=== PATIENT | female | born 1990 | race Caucasian/White ===

== ENCOUNTER 2017-10-14 13:51 | Emergency (ER) | payer MEDICAID ==
--- NOTE | 2017-10-14 14:43 | EDM.PDOC ---
ED HPI GENERAL MEDICAL PROBLEM - General Chief Complaint: Behavioral/Psych Stated Complaint: DEPRESSION Time Seen by Provider: 10/14/17 14:12 - History of Present Illness INITIAL COMMENTS - FREE TEXT/NARRATIVE: HISTORY AND PHYSICAL: History of present illness: The patient is a 27-year-old female who is feeling incredibly sad and depressed over the last one month due to several family members illnesses and deaths and has seen her provider Dr. Heredia at [facility] for same. She was given lorazepam and says that she does not feel like that is helping and she has been trying to connect to get a follow-up appointment and to get plugged in with counseling. She says that every time she makes an appointment is canceled and she feeling frustrated. She is not suicidal or homicidal but feels that she can' t function in her daily life and her employer sent her here due to the same feelings today. She is not having any specific abdominal pain vomiting fevers or chills but says she has had intermittent diarrhea. All of these symptoms have been progressive over the last one month due to the events in her family life. Patient says she called and has a scheduled follow-up appointment at [facility] on Saturday but when she called to see if someone could see her sooner they referred her here on my evaluation she is somewhat vague about her feelings but is specific about feeling like she cannot do her daily activities without feeling like she has absolutely no energy or desire to do these activities. She denies any history of psychiatric problems and is not seen counseling in the past. Review of systems: As per history of present illness and below otherwise all systems reviewed and negative. Past medical history: As per history of present illness and as reviewed below otherwise noncontributory. Surgical history: As per history of present illness and as reviewed below otherwise noncontributory. Social history: No reported history of drug or alcohol abuse. Family history: As per history of present illness and as reviewed below otherwise noncontributory. Physical exam: General: Well-developed well-nourished female who is nontoxic and tearful in my evaluation. Vital signs are reviewed by me HEENT: Atraumatic, normocephalic, pupils reactive, negative for conjunctival pallor or scleral icterus, mucous membranes moist, throat clear, neck supple, nontender, trachea midline. Lungs: Clear to auscultation, breath sounds equal bilaterally, chest nontender. Heart: S1S2, regular rate and rhythm no overt murmur Abdomen: Soft, nondistended, nontender. NABS Pelvis: Deferred Genitourinary: Deferred. Rectal: Deferred. Extremities: Atraumatic, negative for cords or calf pain. Neurovascular unremarkable. Neuro: Awake, alert, oriented. Cranial nerves II through XII unremarkable. Cerebellum unremarkable. Motor and sensory unremarkable throughout. Exam nonfocal. Diagnostics: [] Therapeutics: [] Impression: Depression due to recent family events and external stressors Definitive disposition and diagnosis as appropriate pending reevaluation and review of above. - Related Data Allergies Allergy/AdvReac Type Severity Reaction Status Date / Time seasonal allergies Allergy Sneezing Uncoded 11/19/15 16:21 Home Meds: Home Meds Ibuprofen [Motrin] 1,000 mg PO Q8H PRN 11/19/15 [History] LORazepam 0.5 mg PO TID PRN 10/14/17 [History] Past Medical History - Past Health History Medical/Surgical History: Denies Medical/Surgical History - Infectious Disease History Infectious Disease History: Reports: Chicken Pox - Past Surgical History HEENT Surgical History: Reports: Oral Surgery, Tonsillectomy Female Surgical History: Reports: Cystectomy Social & Family History - Family History Cardiac: Reports: Heart Failure Other Cardiac Family History: paternal grandfather of heart attack Respiratory: Reports: Asthma Psychiatric: Reports: None Oncologic: Reports: Other (See Below) Other Oncologic Family History: maternal grandmother has kidney cancer - Tobacco Use Smoking Status *Q: Current Every Day Smoker Years of Tobacco use: 15 Packs/Tins Daily: 0 - Caffeine Use Caffeine Use: Reports: Coffee, Soda - Recreational Drug Use Recreational Drug Use: Yes Drug Use in Last 12 Months: Yes Recreational Drug Type: Reports: Marijuana/Hashish Recreational Drug Use Frequency: Rarely ED ROS GENERAL - Review of Systems Review Of Systems: ROS reveals no pertinent complaints other than HPI. ED EXAM, GENERAL - Physical Exam Exam: See Below (See dictation) Course - Vital Signs Last Recorded V/S: Last Vital Signs Temp 36.2 C 10/14/17 14:08 Pulse 73 10/14/17 14:08 Resp 16 10/14/17 14:08 BP 113/65 10/14/17 14:08 Pulse Ox 100 10/14/17 14:08 Departure - Departure Time of Disposition: 14:43 Disposition: Home, Self-Care 01 Condition: Good Clinical Impression: Reaction, situational Qualifiers: Adjustment disorder type: with depressed mood Qualified Code(s): F43.21 - Adjustment disorder with depressed mood Depression Qualifiers: Depression Type: unspecified Qualified Code(s): F32.9 - Major depressive disorder, single episode, unspecified - Discharge Information Referrals: PCP,None [Primary Care Provider] - Additional Instructions: The following information is given to patients seen in the emergency department who are being discharged to home. This information is to outline your options for follow-up care. We provide all patients seen in our emergency department with a follow-up referral. The need for follow-up, as well as the timing and circumstances, are variable depending upon the specifics of your emergency department visit. If you don't have a primary care physician on staff, we will provide you with a referral. We always advise you to contact your personal physician following an emergency department visit to inform them of the circumstance of the visit and for follow-up with them and/or the need for any referrals to a consulting specialist. The emergency department will also refer you to a specialist when appropriate. This referral assures that you have the opportunity for followup care with a specialist. All of these measure are taken in an effort to provide you with optimal care, which includes your followup. Under all circumstances we always encourage you to contact your private physician who remains a resource for coordinating your care. When calling for followup care, please make the office aware that this follow-up is from your recent emergency room visit. If for any reason you are refused follow-up, please contact the [facility] emergency department at and ask to speak to the emergency department charge nurse. [address] [place] [address] Please use resources given to today to try to connect for outpatient follow-up to help provide you with some guidance and tools for the feelings that you're having so that you can attempt to improve them. Your appointment has been moved up until tomorrow at 1:15 PM with Nissa Valdes at [facility]. Return to ER as needed, push hydration and try to rest
[2017-10-14 16:10] VITALS: BP 101/60
== END 2017-10-14 14:55 | disposition home or self-care (01) ==
LOC: MW.ED 13:51
DX: F32.9 Major depressive disorder, single episode, unspecified (principal); F43.21 Adjustment disorder with depressed mood; F17.210 Nicotine dependence, cigarettes, uncomplicated
CPT/HCPCS: 99283

== ENCOUNTER 2018-10-02 10:59 | Emergency (ER) | payer OTHER ==
--- NOTE | 2018-10-02 11:03 | EDM.PDOC ---
ED HPI GENERAL MEDICAL PROBLEM - General Stated Complaint: STOMACH PAINS Time Seen by Provider: 10/02/18 11:01 Source of Information: Reports: Patient History Limitations: Reports: No Limitations - History of Present Illness INITIAL COMMENTS - FREE TEXT/NARRATIVE: History of present illness: []Patient is 5 weeks and has developed flu symptoms with fevers, vomiting and abdominal pain. She was talking with [facility] on the phone who suggested she come to the ED to be evaluated. He has Miscarried once in the past at 7 weeks and is concerned she may miscarry again. Patient has not had any vaginal bleeding or leakage. Review of systems: As per history of present illness and below otherwise all systems reviewed and negative. Past medical history: As per history of present illness and as reviewed below otherwise noncontributory. Surgical history: As per history of present illness and as reviewed below otherwise noncontributory. Social history: No reported history of drug or alcohol abuse. Family history: As per history of present illness and as reviewed below otherwise noncontributory. Physical exam: General: Well developed, well nourished in NAD HEENT: Atraumatic, normocephalic, pupils reactive, negative for conjunctival pallor or scleral icterus, mucous membranes moist, throat clear, neck supple, nontender, trachea midline. Lungs: Clear to auscultation, breath sounds equal bilaterally, chest nontender. Heart: S1S2, regular, negative for clicks, rubs, or JVD. Abdomen: NABS, Soft, nondistended, mild tenderness no rebound or guarding. Negative for masses or hepatosplenomegaly. Negative for costovertebral tenderness. Pelvis: Stable nontender. Genitourinary: Deferred. Rectal: Deferred. Extremities: Atraumatic, negative for cords or calf pain. Neurovascular unremarkable. Neuro: Awake, alert, oriented. Cranial nerves II through XII unremarkable. Cerebellum unremarkable. Motor and sensory unremarkable throughout. Exam nonfocal. Skin:warm and dry Diagnostics: CBC, hCG Quant, UA, limited OB ultrasound-5 wk IUP Therapeutics: IV hydration ED Course: Stable Impression: Threatened Prescriptions: None Plan: Take meds as directed, follow up with your primary care physician, return to ER if symptoms worsen or change. Definitive disposition and diagnosis as appropriate pending reevaluation and review of above. Right Upper Abdomen Pain Score (Numeric/FACES): 4 - Related Data Allergies Allergy/AdvReac Type Severity Reaction Status Date / Time seasonal allergies Allergy Sneezing Uncoded 10/02/18 11:20 Home Meds: Home Meds Ibuprofen [Motrin] 1,000 mg PO Q8H PRN 11/19/15 [History] LORazepam 0.5 mg PO TID PRN 10/14/17 [History] Past Medical History - Past Health History Medical/Surgical History: Denies Medical/Surgical History - Infectious Disease History Infectious Disease History: Reports: Chicken Pox - Past Surgical History HEENT Surgical History: Reports: Oral Surgery, Tonsillectomy Female Surgical History: Reports: Cystectomy Social & Family History - Family History Cardiac: Reports: Heart Failure Other Cardiac Family History: paternal grandfather of heart attack Respiratory: Reports: Asthma Psychiatric: Reports: None Oncologic: Reports: Other (See Below) Other Oncologic Family History: maternal grandmother has kidney cancer - Caffeine Use Caffeine Use: Reports: Coffee, Soda ED ROS GENERAL - Review of Systems Review Of Systems: See Below ED EXAM, GI/ABD - Physical Exam Exam: See Below Course - Vital Signs Last Recorded V/S: Last Vital Signs Temp 96.8 F 10/02/18 11:21 Pulse 94 10/02/18 11:21 Resp 18 10/02/18 11:21 BP 116/66 10/02/18 11:21 Pulse Ox 96 10/02/18 11:21 - Orders/Labs/Meds Orders: Active Orders 24 hr Category Date Time Status COMPREHENSIVE METABOLIC PN,CMP [CHEM] Stat Lab 10/02/18 12:00 Received HCG QUANTITATIVE [CHEM] Stat Lab 10/02/18 12:00 Received Sodium Chloride 0.9% [Saline Flush] Med 10/02/18 11:16 Active 10 ml FLUSH ASDIRECTED PRN Sodium Chloride 0.9% [Saline Flush] Med 10/02/18 11:16 Active 2.5 ml FLUSH ASDIRECTED PRN Saline Lock Insert [OM.PC] Stat Oth 10/02/18 11:16 Ordered Medication Orders Sodium Chloride (Saline Flush) 10 ml FLUSH ASDIRECTED PRN PRN Reason: Keep Vein Open Last Admin: 10/02/18 12:07 Dose: 10 ml Sodium Chloride (Saline Flush) 2.5 ml FLUSH ASDIRECTED PRN PRN Reason: Keep Vein Open Last Admin: 10/02/18 12:07 Dose: 2.5 ml Labs: Laboratory Tests 10/02/18 10/02/18 Range/Units 12:00 12:00 WBC 7.24 (4.0-11.0) K/uL RBC 4.75 (4.30-5.90) M/uL Hgb 14.2 (12.0-16.0) g/dL Hct 40.4 (36.0-46.0) % MCV 85.1 (80.0-98.0) fL MCH 29.9 (27.0-32.0) pg MCHC 35.1 (31.0-37.0) g/dL RDW Std Deviation 38.5 (28.0-62.0) fl RDW Coeff of Carol 13 (11.0-15.0) % Plt Count 176 (150-400) K/uL MPV 9.20 (7.40-12.00) fL Neut % (Auto) 81.9 H (48.0-80.0) % Lymph % (Auto) 12.7 L (16.0-40.0) % [place] % (Auto) 4.6 (0.0-15.0) % Eos % (Auto) 0.7 (0.0-7.0) % Baso % (Auto) 0.1 (0.0-1.5) % Neut # (Auto) 5.9 H (1.4-5.7) K/uL Lymph # (Auto) 0.9 (0.6-2.4) K/uL [place] # (Auto) 0.3 (0.0-0.8) K/uL Eos # (Auto) 0.1 (0.0-0.7) K/uL Baso # (Auto) 0.0 (0.0-0.1) K/uL Nucleated RBC % 0.0 /100WBC Nucleated RBCs # 0 K/uL Urine Color YELLOW Urine Appearance SLT CLOUDY Urine pH 5.5 (5.0-8.0) Ur Specific [place] >= 1.030 (1.001-1.035) Urine Protein NEGATIVE (NEGATIVE) mg/dL Urine Glucose (UA) NEGATIVE (NEGATIVE) mg/dL Urine Ketones 15 H (NEGATIVE) mg/dL Urine Occult Blood NEGATIVE (NEGATIVE) Urine Nitrite NEGATIVE (NEGATIVE) Urine Bilirubin SMALL H (NEGATIVE) Urine Ictotest NEGATIVE Urine Urobilinogen 0.2 (<2.0) EU/dL Ur Leukocyte Esterase NEGATIVE (NEGATIVE) Urine RBC 0-1 (0-2/HPF) Urine WBC 0-1 (0-5/HPF) Ur Epithelial Cells RARE (NONE-FEW) Urine Bacteria RARE (NEGATIVE) Meds: Medications Generic Name Dose Route Start Last Admin Trade Name Freq PRN Reason Stop Dose Admin Sodium Chloride 10 ml 10/02/18 11:16 10/02/18 12:07 Saline Flush FLUSH 10 ml ASDIRECTED PRN Administration Keep Vein Open Sodium Chloride 2.5 ml 10/02/18 11:16 10/02/18 12:07 Saline Flush FLUSH 2.5 ml ASDIRECTED PRN Administration Keep Vein Open Discontinued Medications Generic Name Dose Route Start Last Admin Trade Name Freq PRN Reason Stop Dose Admin Sodium Chloride 1,000 mls @ 999 mls/hr 10/02/18 11:18 10/02/18 12:06 Normal Saline IV 10/02/18 12:18 999 mls/hr .Bolus ONE Administration Ondansetron HCl 4 mg 10/02/18 11:16 10/02/18 12:06 Zofran IVPUSH 10/02/18 11:17 4 mg ONETIME ONE Administration Departure - Departure Time of Disposition: 12:48 Disposition: Home, Self-Care 01 Condition: Good Clinical Impression: Threatened - Discharge Information *PRESCRIPTION DRUG MONITORING PROGRAM REVIEWED*: No *COPY OF PRESCRIPTION DRUG MONITORING REPORT IN PATIENT HAJA: No Referrals: PCP,None [Primary Care Provider] - Additional Instructions: The following information is given to patients seen in the emergency department who are being discharged to home. This information is to outline your options for follow-up care. We provide all patients seen in our emergency department with a follow-up referral. The need for follow-up, as well as the timing and circumstances, are variable depending upon the specifics of your emergency department visit. If you don't have a primary care physician on staff, we will provide you with a referral. We always advise you to contact your personal physician following an emergency department visit to inform them of the circumstance of the visit and for follow-up with them and/or the need for any referrals to a consulting specialist. The emergency department will also refer you to a specialist when appropriate. This referral assures that you have the opportunity for follow-up care with a specialist. All of these measure are taken in an effort to provide you with optimal care, which includes your follow-up. Under all circumstances we always encourage you to contact your private physician who remains a resource for coordinating your care. When calling for follow-up care, please make the office aware that this follow-up is from your recent emergency room visit. If for any reason you are refused follow-up, please contact the [facility] Emergency Department at and asked to speak to the emergency department charge nurse. [facility] [address] [place] [address] - My Orders Last 24 Hours: My Active Orders 10/02/18 11:16 Sodium Chloride 0.9% [Saline Flush] 10 ml FLUSH ASDIRECTED PRN Sodium Chloride 0.9% [Saline Flush] 2.5 ml FLUSH ASDIRECTED PRN Saline Lock Insert [OM.PC] Stat 10/02/18 12:00 COMPREHENSIVE METABOLIC PN,CMP [CHEM] Stat HCG QUANTITATIVE [CHEM] Stat - Assessment/Plan Last 24 Hours: My Active Orders 10/02/18 11:16 Sodium Chloride 0.9% [Saline Flush] 10 ml FLUSH ASDIRECTED PRN Sodium Chloride 0.9% [Saline Flush] 2.5 ml FLUSH ASDIRECTED PRN Saline Lock Insert [OM.PC] Stat 10/02/18 12:00 COMPREHENSIVE METABOLIC PN,CMP [CHEM] Stat HCG QUANTITATIVE [CHEM] Stat
[2018-10-02] MEDS ORDERED: Sodium Chloride 0.9% 10 ML Syringe FLUSH PRN (11:16)
[2018-10-02] MEDS ORDERED: Ondansetron 4 MG/2 ML SDV IVPUSH ONE (11:16)
[2018-10-02] MEDS ORDERED: Sodium Chloride 0.9% 2.5 ML Syringe FLUSH PRN (11:16)
[2018-10-02] MEDS ORDERED: Sodium Chloride 0.9% 1,000 ML IV ONE (11:18)
--- NOTE | 2018-10-02 12:31 | US ---
HISTORY: Pelvic pain. Five weeks . COMPARISON: None available of this gestation. TECHNIQUE: Transvaginal ultrasound examination of the early was performed. FINDINGS: A single intrauterine gestational sac is seen without a pole, but with a good double decidual sac sign. The mean sac diameter measurement of 0.4 cm gives an estimated gestational age of 5 weeks 1 day with an estimated date of delivery of 06/03/2019. This correlates well with the LMP of 08/27/2018 which gives a clinical age of 5 weeks 1 day. Regular cardiac activity cannot yet be identified since a pole is not seen. There is a mild amount of free fluid located in the cul-de-sac, nonspecific. Nabothian cysts are seen at the cervix. The right ovary contains a corpus luteum cyst measuring 2.2 x 1.3 x 1.9 centimeters. The left ovary is normal in appearance. IMPRESSION: Single intrauterine gestational sac with estimated age of 5 weeks 1 day, correlating well with the clinical dates. Cardiac activity cannot yet be identified. Mild amount of free fluid in the cul-de-sac, nonspecific. Right ovarian corpus luteum cyst. Dictated by Luis Lovelace MD @ Oct 02 2018 12:26PM Signed by Dr. Luis Lovelace @ Oct 02 2018 12:29PM
[2018-10-02 12:58] LABS: BLOOD UREA NITROGEN,BUN 15 mg/dL (7.0-18.0); CARBON DIOXIDE,CO2 23.9 mmol/L (21.0-32.0); CHLORIDE,CL 104 mmol/L (98-107); GLUCOSE RANDOM 90 mg/dL (74-106); POTASSIUM,K 3.5 mmol/L (3.5-5.1); SODIUM,NA 137 mmol/L (136-145)
[2018-10-02 12:59] VITALS: BP 103/65; PULSE 70
== END 2018-10-02 12:59 | disposition home or self-care (01) ==
LOC: MW.ED 10:59
DX: O20.0 Threatened abortion (principal); Z3A.01 Less than 8 weeks gestation of pregnancy
CPT/HCPCS: 36415; 76817; 80053; 81001; 84702; 85025; 96361; 96374; 99284; J2405; J7040; 99283

== ENCOUNTER 2019-05-30 15:08 | Inpatient (IN) | payer MEDICAID ==
[2019-05-30] MEDS ORDERED: Sodium Chloride 0.9% 2.5 ML Syringe FLUSH PRN (16:08)
[2019-05-30] MEDS ORDERED: Nalbuphine 10 MG/1 ML Vial IVPUSH PRN (16:08)
[2019-05-30] MEDS ORDERED: Tranexamic Acid 1,000 MG in Sodium Chloride 0.9% 100 ML IV PRN (16:08)
[2019-05-30] MEDS ORDERED: Water For Irrigation,Sterile 1,000 ML Container IRR PRN (16:08)
[2019-05-30] MEDS ORDERED: Misoprostol 25 MCG (1/4 of 100 MCG) Tab VAG PRN ×2 (16:08)
[2019-05-30] MEDS ORDERED: Sodium Chloride 0.9% 10 ML SDV IV PRN (16:08)
[2019-05-30] MEDS ORDERED: Ampicillin 2 GM in Sodium Chloride 0.9% 100 ML IV ONE (16:08)
[2019-05-30] MEDS ORDERED: Methylergonovine 0.2 MG/1 ML Amp IM PRN (16:08)
[2019-05-30] MEDS ORDERED: Terbutaline 1 MG/ML SDV SUBCUT PRN (16:08)
[2019-05-30] MEDS ORDERED: Sodium Chloride 0.9% 10 ML Syringe FLUSH PRN (16:08)
[2019-05-30] MEDS ORDERED: Misoprostol 25 MCG (1/4 of 100 MCG) Tab PO PRN (16:08)
[2019-05-30] MEDS ORDERED: Carboprost Tromethamine 250 MCG/1 ML Amp IM PRN (16:08)
[2019-05-30] MEDS ORDERED: Lidocaine 1% 50 ML MDV INJECT PRN (16:08)
[2019-05-30] MEDS ORDERED: Misoprostol 200 MCG Tab PO PRN (16:08)
[2019-05-30] MEDS ORDERED: Butorphanol 1 MG/ML SDV IVPUSH PRN (16:08)
[2019-05-30] MEDS ORDERED: Oxytocin/0.9 % Sodium Chloride 30 UNIT/500 ML BAG IV SCH ×2 (16:15)
[2019-05-30] MEDS: Lactated Ringers 1,000 ML IV SCH ×3 (18:26→21:03)
--- NOTE | 2019-05-30 19:33 | PCM.LDHP ---
L&D History of Present Illness - General Date of Service: 05/30/19 Admit Problem/Dx: Patient Status Order with Admit Dx/Problem 05/30/19 16:08 Patient Status [ADT] Routine Admission Diagnosis/Problem Admission Diagnosis/Problem 05/30/19 19:37 Ivette is a 29 yo that presents today for social IOL at 39.3 wks (TIFFANIE 06/03/2019). AB pos, RI, GBS pos. Source of Information: Patient History Limitations: Reports: No Limitations - History of Present Illness Introduction:: Ivette is a 29 yo that presents today for social IOL at 39.3 wks (TIFFANIE 06/03/2019). AB pos, RI, GBS pos. Prophylactic ampicillin 2 g once then ampicillin 1 g every 4 hours thereafter. No pertinent medical history. Cytotec to pitocin IOL per orders. SVE 1/50/-2, cytotec dose #1 given at 1645, membranes intact. Contractions every 1-4 min, 60-90 sec duration, moderate to palpation, breathing through contractions. FHR 135, moderate variability, positive accels, variable and late decels. RN to continue position changes, 1, 000 ml LR bolus, O2 as needed for intrauterine resuscitation. To notify provider if tracing does not improve. Continue with IOL as per orders. Improves with: Reports: None Worsens with: Reports: None Associated Symptoms: Reports: N - Related Data Allergies/Adverse Reactions: Allergies Allergy/AdvReac Type Severity Reaction Status Date / Time seasonal allergies Allergy Mild Sneezing Uncoded 05/08/19 15:34 Home Medications: Home Meds Ibuprofen [Motrin] 1,000 mg PO Q8H PRN 11/19/15 [History] LORazepam 0.5 mg PO TID PRN 10/14/17 [History] Pnv No.95/Ferrous Fum/Folic AC [ Vitamins Tablet] 1 tab PO DAILY [History] Past Medical History - Past Health History Medical/Surgical History: Denies Medical/Surgical History HEENT History: Reports: None Cardiovascular History: Reports: None Respiratory History: Reports: None Gastrointestinal History: Reports: None Genitourinary History: Reports: None WRAPPER DIPPER History: Reports: None, : 5 Para: 3 (IOL with x3, SAB x1) Musculoskeletal History: Reports: None Neurological History: Reports: None Psychiatric History: Reports: None Endocrine/Metabolic History: Reports: None Hematologic History: Reports: None Immunologic History: Reports: None Dermatologic History: Reports: None - Infectious Disease History Infectious Disease History: Reports: Chicken Pox - Past Surgical History HEENT Surgical History: Reports: Oral Surgery, Tonsillectomy Female Surgical History: Reports: Cystectomy Social & Family History - Family History Family Medical History: Noncontributory Cardiac: Reports: Heart Failure Other Cardiac Family History: paternal grandfather of heart attack Respiratory: Reports: Asthma Psychiatric: Reports: None Oncologic: Reports: Other (See Below) Other Oncologic Family History: maternal grandmother has kidney cancer - Tobacco Use Smoking Status *Q: Former Smoker Used Tobacco, but Quit: Yes Month/Year Tobacco Last Used: 9 months ago Second Hand Smoke Exposure: No - Caffeine Use Caffeine Use: Reports: Coffee, Soda - Alcohol Use Alcohol Use History: No - Recreational Drug Use Recreational Drug Use: No - Sexual History Sexual History: Reports: Single Partner, Vaginal [place] - Living Situation & Occupation Living situation: Reports: H&P Review of Systems - Review of Systems: Review Of Systems: Comprehensive ROS is negative, except as noted in HPI. General: Reports: No Symptoms HEENT: Reports: No Symptoms Pulmonary: Reports: No Symptoms Cardiovascular: Reports: No Symptoms Gastrointestinal: Reports: No Symptoms Genitourinary: Reports: No Symptoms Musculoskeletal: Reports: No Symptoms Skin: Reports: No Symptoms Psychiatric: Reports: No Symptoms Neurological: Reports: No Symptoms Hematologic/Lymphatic: Reports: No Symptoms Immunologic: Reports: No Symptoms L&D Exam - Exam Exam: See Below - Vital Signs Weight: 170 lb - OB Specific Fundal Height In cm: 39 Contraction Duration (sec): 60-90 Contraction Frequency (min): 1-4 Contraction Intensity: Moderate Movement: Active Heart Tones: Present Heart Tones per Min: 135 (Accels present; variable and late decels present ) Heart Rate (FHR) Variability: Moderate (6-25 bmp) Presentation: Vertex - Ferrera Score Ferrera Score Cervix Position: Midposition Ferrera Score Consistency: Soft Ferrera Score Effacement: 31-50% Ferrera Score Dilation: 1-2 cm Ferrera Score 's Station: -2 Ferrear Score Total: 6 - Exam General: Alert, Oriented HEENT: Conjunctiva Clear, Hearing Intact, Mucosa Moist & [place], PERRLA Neck: Supple, Trachea Midline Lungs: Clear to Auscultation, Normal Respiratory Effort Cardiovascular: Regular Rate, Regular Rhythm GI/Abdominal Exam: Normal Bowel Sounds, Soft, Non-Tender, No Organomegaly, No Distention, Other (Gravid uterus) Rectal Exam: Deferred Genitourinary: Normal external exam, Normal bimanual exam Back Exam: Normal Inspection, Full Range of Motion Extremities: Normal Inspection, Normal Range of Motion, Non-Tender, No Pedal Edema, Normal Capillary Refill Skin: Warm, Dry, Intact Neurological: Cranial Nerves Intact, Reflexes Equal Bilateral Psychiatric: Alert, Normal Affect, Normal Mood - Patient Data Lab Results Last 24 hrs: Laboratory Results - last 24 hr 05/30/19 05/30/19 Range/Units 15:50 15:50 WBC 9.85 (4.0-11.0) K/uL RBC 4.11 L (4.30-5.90) M/uL Hgb 11.6 L (12.0-16.0) g/dL Hct 35.4 L (36.0-46.0) % MCV 86.1 (80.0-98.0) fL MCH 28.2 (27.0-32.0) pg MCHC 32.8 (31.0-37.0) g/dL RDW Std Deviation 41.8 (28.0-62.0) fl RDW Coeff of Carol 13 (11.0-15.0) % Plt Count 190 (150-400) K/uL MPV 10.20 (7.40-12.00) fL Nucleated RBC % 0.0 /100WBC Nucleated RBCs # 0 K/uL Blood Type AB POSITIVE Antibody Screen NEGATIVE Result Diagrams: 05/30/19 15:50 - Problem List (1) Elective induction of labor planned SNOMED Code(s): 220516684 ICD Code: [id number] - Status: Acute Priority: High Current Visit: Yes (2) Third trimester SNOMED Code(s): 95533515 ICD Code: Z34.93 - ENCNTR FOR SUPRVSN OF NORMAL PREG, UNSP, THIRD TRIMESTER Status: Acute Priority: High Current Visit: Yes (3) 39 weeks gestation of SNOMED Code(s): 16816195 ICD Code: Z3A.39 - 39 WEEKS GESTATION OF Status: Acute Priority : High Current Visit: Yes Problem List Initiated/Reviewed/Updated: Yes Orders Last 24hrs: Active Orders 24 hr Category Date Time Status Patient Status [ADT] Routine ADT 05/30/19 16:08 Active Bedrest Bathroom Privileges [RC] ASDIRECTED Care 05/30/19 16:08 Active Communication Order [RC] ASDIRECTED Care 05/30/19 16:08 Active Communication Order [RC] ASDIRECTED Care 05/30/19 16:08 Active Communication Order [RC] ASDIRECTED Care 05/30/19 16:08 Active Heart Tones [RC] CONTINUOUS Care 05/30/19 16:08 Active Non Stress Test [RC] PER UNIT ROUTINE Care 05/30/19 16:08 Active May Shower [RC] ASDIRECTED Care 05/30/19 16:08 Active Notify Provider [RC] PRN Care 05/30/19 16:08 Active Notify Provider [RC] PRN Care 05/30/19 16:08 Active Notify Provider [RC] PRN Care 05/30/19 16:08 Active Notify Provider [RC] STAT Care 05/30/19 16:08 Active Oxygen Therapy [RC] ASDIRECTED Care 05/30/19 16:08 Active Up ad Franca [RC] ASDIRECTED Care 05/30/19 16:08 Active Vaginal Exam [RC] PRN Care 05/30/19 16:08 Active Vaginal Exam [RC] PRN Care 05/30/19 16:08 Active Vital Signs [RC] PER UNIT ROUTINE Care 05/30/19 16:08 Active Vital Signs [RC] PER UNIT ROUTINE Care 05/30/19 16:08 Active RPR (SYPHILIS SERO) W/ RFLX [REF] Routine Lab 05/30/19 15:50 Received Ampicillin 1 gm Med 05/30/19 20:30 Active Sodium Chloride 0.9% [Normal Saline] 50 ml IV Q4H Butorphanol [Stadol] Med 05/30/19 16:08 Active 1 mg IVPUSH Q1H PRN Carboprost Tromethamine [Hemabate DS] Med 05/30/19 16:08 Active 250 mcg IM ASDIRECTED PRN Lactated Ringers [Ringers, Lactated] 1,000 ml Med 05/30/19 16:15 Active IV ASDIRECTED Lidocaine 1% [Xylocaine 1%] Med 05/30/19 16:08 Active 50 ml INJECT ONETIME PRN Methylergonovine [Methergine] Med 05/30/19 16:08 Active 0.2 mg IM ASDIRECTED PRN Nalbuphine [Nubain] Med 05/30/19 16:08 Active 10 mg IVPUSH Q1H PRN Oxytocin/0.9 % Sodium Chloride [Oxytocin 30 Unit/500 ML Med 05/30/19 16:15 Active -NS] 30 unit in 500 ml IV TITRATE Oxytocin/0.9 % Sodium Chloride [Oxytocin 30 Unit/500 ML Med 05/30/19 16:15 Active -NS] 30 unit in 500 ml IV TITRATE Sodium Chloride 0.9% [Normal Saline] Med 05/30/19 16:08 Active 10 ml IV ASDIRECTED PRN Sodium Chloride 0.9% [Saline Flush] Med 05/30/19 16:08 Active 10 ml FLUSH ASDIRECTED PRN Sodium Chloride 0.9% [Saline Flush] Med 05/30/19 16:08 Active 2.5 ml FLUSH ASDIRECTED PRN Terbutaline [Brethine] Med 05/30/19 16:08 Active 0.25 mg SUBCUT ASDIRECTED PRN Tranexamic Acid [Cyklokapron] 1,000 mg Med 05/30/19 16:08 Active Sodium Chloride 0.9% [Normal Saline] 100 ml IV ONETIME Water For Irrigation,Sterile [Sterile Water for Med 05/30/19 16:08 Active Irrigation] 1,000 ml IRR ASDIRECTED PRN miSOPROStoL [Cytotec] Med 05/30/19 16:08 Active 200 mcg PO ONETIME PRN miSOPROStoL [Cytotec] Med 05/30/19 16:08 Active 25 mcg PO Q4H PRN miSOPROStoL [Cytotec] Med 05/30/19 16:08 Active 25 mcg VAG ONETIME PRN miSOPROStoL [Cytotec] Med 05/30/19 16:08 Active 25 mcg VAG Q4H PRN Scalp Electrode [WOMSER] Per Unit Routine Oth 05/30/19 16:08 Ordered Medication Administration Instruction [OM.PC] Q3H Oth 05/30/19 16:15 Ordered Peripheral IV Insertion Adult [OM.PC] Routine Oth 05/30/19 16:08 Ordered Resuscitation Status Routine Resus Stat 05/30/19 16:08 Ordered Medication Orders Butorphanol Tartrate (Stadol) 1 mg IVPUSH Q1H PRN PRN Reason: Pain Carboprost Tromethamine (Hemabate Ds) 250 mcg IM ASDIRECTED PRN PRN Reason: Post Hemorrhage Ampicillin Sodium 1 gm/ Sodium (Chloride) 50 mls @ 100 mls/hr IV Q4H [facility] Lactated Ringer's (Ringers, Lactated) 1,000 mls @ 150 mls/hr IV ASDIRECTED [facility] Last Admin: 05/30/19 19:26 Dose: 999 mls/hr Infusion: 05/30/19 19:26 Dose: 150 mls/hr Admin: 05/30/19 18:26 Dose: 150 mls/hr Oxytocin/Sodium Chloride (Oxytocin 30 Unit/500 Ml-Ns) 30 unit in 500 mls @ 500 mls/hr IV TITRATE [facility] Oxytocin/Sodium Chloride (Oxytocin 30 Unit/500 Ml-Ns) 30 unit in 500 mls @ 2 mls/hr IV TITRATE [facility]; Protocol Tranexamic Acid 1,000 mg/ (Sodium Chloride) 110 mls @ 660 mls/hr IV ONETIME PRN PRN Reason: Bleeding Lidocaine HCl (Xylocaine 1%) 50 ml INJECT ONETIME PRN PRN Reason: Laceration repair Methylergonovine Maleate (Methergine) 0.2 mg IM ASDIRECTED PRN PRN Reason: Post Hemorrhage Misoprostol (Cytotec) 200 mcg PO ONETIME PRN PRN Reason: Post Hemorrhage Misoprostol (Cytotec) 25 mcg VAG ONETIME PRN PRN Reason: Cervical Ripening Misoprostol (Cytotec) 25 mcg VAG Q4H PRN PRN Reason: Cervical Ripening Last Admin: 05/30/19 16:40 Dose: 25 mcg Misoprostol (Cytotec) 25 mcg PO Q4H PRN PRN Reason: Cervical Ripening Last Admin: 05/30/19 16:40 Dose: 25 mcg Nalbuphine HCl (Nubain) 10 mg IVPUSH Q1H PRN PRN Reason: Pain (severe 7-10) Sodium Chloride (Saline Flush) 10 ml FLUSH ASDIRECTED PRN PRN Reason: Keep Vein Open Sodium Chloride (Saline Flush) 2.5 ml FLUSH ASDIRECTED PRN PRN Reason: Keep Vein Open Sodium Chloride (Normal Saline) 10 ml IV ASDIRECTED PRN PRN Reason: IV Use Sterile Water (Sterile Water For Irrigation) 1,000 ml IRR ASDIRECTED PRN PRN Reason: delivery Terbutaline Sulfate (Brethine) 0.25 mg SUBCUT ASDIRECTED PRN PRN Reason: Tacysystole Assessment/Plan Comment:: Ivette is a 29 yo that presents today for social IOL at 39.3 wks (TIFFANIE 06/03/2019). AB pos, RI, GBS pos. Prophylactic ampicillin 2 g once then ampicillin 1 g every 4 hours thereafter. No pertinent medical history. Cytotec to pitocin IOL per orders. SVE 50/-2, cytotec dose #1 given at 1645, membranes intact. Contractions every 1-4 min, 60-90 sec duration, moderate to palpation, breathing through contractions. FHR 135, moderate variability, positive accels, variable and late decels. RN to continue position changes, 1, 000 ml LR bolus, O2 as needed for intrauterine resuscitation. To notify provider if tracing does not improve. Continue with IOL as per orders.
[2019-05-30] MEDS: Ampicillin 1 GM in Sodium Chloride 0.9% 50 ML IV SCH (21:05)
--- NOTE | 2019-05-30 22:07 | PCM.PNLD ---
Labor Progress Note - VS & Meds Vital Signs: BP 112/62. HR 68. T 98.4 Active Medications: Current Medications Butorphanol Tartrate (Stadol) 1 mg IVPUSH Q1H PRN PRN Reason: Pain Carboprost Tromethamine (Hemabate Ds) 250 mcg IM ASDIRECTED PRN PRN Reason: Post Hemorrhage Ampicillin Sodium 1 gm/ Sodium (Chloride) 50 mls @ 100 mls/hr IV Q4H [facility] Last Admin: 05/30/19 21:05 Dose: 100 mls/hr Lactated Ringer's (Ringers, Lactated) 1,000 mls @ 150 mls/hr IV ASDIRECTED [facility] Last Admin: 05/30/19 21:03 Dose: 150 mls/hr Oxytocin/Sodium Chloride (Oxytocin 30 Unit/500 Ml-Ns) 30 unit in 500 mls @ 500 mls/hr IV TITRATE [facility] Oxytocin/Sodium Chloride (Oxytocin 30 Unit/500 Ml-Ns) 30 unit in 500 mls @ 2 mls/hr IV TITRATE [facility]; Protocol Tranexamic Acid 1,000 mg/ (Sodium Chloride) 110 mls @ 660 mls/hr IV ONETIME PRN PRN Reason: Bleeding Lidocaine HCl (Xylocaine 1%) 50 ml INJECT ONETIME PRN PRN Reason: Laceration repair Methylergonovine Maleate (Methergine) 0.2 mg IM ASDIRECTED PRN PRN Reason: Post Hemorrhage Misoprostol (Cytotec) 200 mcg PO ONETIME PRN PRN Reason: Post Hemorrhage Misoprostol (Cytotec) 25 mcg VAG ONETIME PRN PRN Reason: Cervical Ripening Misoprostol (Cytotec) 25 mcg VAG Q4H PRN PRN Reason: Cervical Ripening Last Admin: 05/30/19 16:40 Dose: 25 mcg Misoprostol (Cytotec) 25 mcg PO Q4H PRN PRN Reason: Cervical Ripening Last Admin: 05/30/19 16:40 Dose: 25 mcg Nalbuphine HCl (Nubain) 10 mg IVPUSH Q1H PRN PRN Reason: Pain (severe 7-10) Last Admin: 05/30/19 21:03 Dose: 10 mg Sodium Chloride (Saline Flush) 10 ml FLUSH ASDIRECTED PRN PRN Reason: Keep Vein Open Sodium Chloride (Saline Flush) 2.5 ml FLUSH ASDIRECTED PRN PRN Reason: Keep Vein Open Sodium Chloride (Normal Saline) 10 ml IV ASDIRECTED PRN PRN Reason: IV Use Sterile Water (Sterile Water For Irrigation) 1,000 ml IRR ASDIRECTED PRN PRN Reason: delivery Terbutaline Sulfate (Brethine) 0.25 mg SUBCUT ASDIRECTED PRN PRN Reason: Tacysystole Discontinued Medications Ampicillin Sodium 2 gm/ Sodium (Chloride) 100 mls @ 200 mls/hr IV ONETIME ONE Stop: 05/30/19 16:37 Last Admin: 05/30/19 16:39 Dose: 200 mls/hr - Uterine Contractions Uterine Monitoring Mode: External [place] Contraction Frequency (min): 1-5 Contraction Duration (sec): 60-90 Contraction Intensity: Mild to Moderate Uterine Resting Tone: Soft - Monitoring Monitor Mode: External Ultrasound Heart Rate (FHR) Baseline: 120 Heart Rate (FHR) Variability: Moderate (6-25 bmp) Accelerations: Present, 15x15 Decelerations: Late (Occasional lates), Variable (Occasional variables) Strip Review: Category II - Vaginal Exam Dilation (cm): 1-2 Effacement (Percent): 50 Station: -2 Cervical Position: Midposition Sterile Vaginal Exam Performed By: Giselle Stone (Cook catheter placed; 60 ml , 60 ml) Vaginal Exam Comment: Cook catheter placed. Patient and fetus tolerated well. Membranes intact. Continue with IOL.
[2019-05-30] MEDS ORDERED: Bupivicaine/fentaNYL/NS 250 ML ONE (23:21)
[2019-05-31] MEDS ORDERED: ePHEDrine 50 MG/ML SDV ONE (00:04)
[2019-05-31] MEDS: Lactated Ringers 1,000 ML IV SCH ×3 (00:06→04:10)
[2019-05-31] MEDS: Ampicillin 1 GM in Sodium Chloride 0.9% 50 ML IV SCH ×2 (01:06→05:06)
--- NOTE | 2019-05-31 01:39 | PCM.PREANE ---
Preanesthetic Assessment - Procedure Proposed Procedure: Continuous Labor Epidural - Anesthesia/Transfusion/Family Hx Anesthesia History: Prior Anesthesia Without Reaction Transfusion History: No Prior Transfusion(s) - Review of Systems General: No Symptoms Pulmonary: No Symptoms Cardiovascular: No Symptoms Gastrointestinal: No Symptoms Neurological: No Symptoms Other: Reports: None - Physical Assessment Height: 5 ft Weight: 77.111 kg ASA Class: 2 Mental Status: Alert & Oriented x3 Airway Class: Mallampati = 2 Dentition: Reports: Normal Dentition Thyro-Mental Finger Breadths: 3 Mouth Opening Finger Breadths: 3 ROM/Head Extension: Full Lungs: Clear to Auscultation, Normal Respiratory Effort Cardiovascular: Regular Rate, Regular Rhythm - Lab Values: Laboratory Last Values WBC 9.85 K/uL (4.0-11.0) 05/30/19 15:50 RBC 4.11 M/uL (4.30-5.90) L 05/30/19 15:50 Hgb 11.6 g/dL (12.0-16.0) L 05/30/19 15:50 Hct 35.4 % (36.0-46.0) L 05/30/19 15:50 MCV 86.1 fL (80.0-98.0) 05/30/19 15:50 MCH 28.2 pg (27.0-32.0) 05/30/19 15:50 MCHC 32.8 g/dL (31.0-37.0) 05/30/19 15:50 RDW Std Deviation 41.8 fl (28.0-62.0) 05/30/19 15:50 RDW Coeff of Carol 13 % (11.0-15.0) 05/30/19 15:50 Plt Count 190 K/uL (150-400) 05/30/19 15:50 MPV 10.20 fL (7.40-12.00) 05/30/19 15:50 Nucleated RBC % 0.0 /100WBC 05/30/19 15:50 Nucleated RBCs # 0 K/uL 05/30/19 15:50 Blood Type AB POSITIVE 05/30/19 15:50 Antibody Screen NEGATIVE 05/30/19 15:50 - Allergies Allergies/Adverse Reactions: Allergies Allergy/AdvReac Type Severity Reaction Status Date / Time seasonal allergies Allergy Mild Sneezing Uncoded 03/13/20 15:34 - Anesthesia Plan Free Text/Narrative:: Continuous Labor Epidural - Acknowledgements Anesthesia Type Planned: Epidural Pt an Appropriate Candidate for the Planned Anesthesia: Yes Alternatives and Risks of Anesthesia Discussed w Pt/Guardian: Yes Pt/Guardian Understands and Agrees with Anesthesia Plan: Yes PreAnesthesia Questionnaire HEENT History: Reports: None Cardiovascular History: Reports: None Respiratory History: Reports: Asthma Gastrointestinal History: Reports: GERD Genitourinary History: Reports: None ORDER DESK CLERK History: Reports: None, , Other (See Below) (Cystectomy ovary) : 5 Para: 3 LMP (Approximate): Musculoskeletal History: Reports: None Neurological History: Reports: None Psychiatric History: Reports: None Endocrine/Metabolic History: Reports: None Hematologic History: Reports: None Immunologic History: Reports: None Dermatologic History: Reports: None - Infectious Disease History Infectious Disease History: Reports: Chicken Pox - Past Surgical History HEENT Surgical History: Reports: Oral Surgery, Tonsillectomy Other HEENT Surgeries/Procedures: wisdom teeth Female Surgical History: Reports: Cystectomy - SUBSTANCE USE Smoking Status *Q: Former Smoker Tobacco Use Within Last Twelve Months: Vaping Second Hand Smoke Exposure: No Recreational Drug Use History: No - HOME MEDS Home Medications: Home Meds Ibuprofen [Motrin] 1,000 mg PO Q8H PRN 11/19/15 [History] LORazepam 0.5 mg PO TID PRN 10/14/17 [History] Pnv No.95/Ferrous Fum/Folic AC [ Vitamins Tablet] 1 tab PO DAILY [History] - CURRENT (IN HOUSE) MEDS Current Meds: Current Medications Butorphanol Tartrate (Stadol) 1 mg IVPUSH Q1H PRN PRN Reason: Pain Carboprost Tromethamine (Hemabate Ds) 250 mcg IM ASDIRECTED PRN PRN Reason: Post Hemorrhage Ampicillin Sodium 1 gm/ Sodium (Chloride) 50 mls @ 100 mls/hr IV Q4H [facility] Last Admin: 05/31/19 01:06 Dose: 100 mls/hr Lactated Ringer's (Ringers, Lactated) 1,000 mls @ 150 mls/hr IV ASDIRECTED [facility] Last Admin: 05/31/19 00:06 Dose: 999 mls/hr Oxytocin/Sodium Chloride (Oxytocin 30 Unit/500 Ml-Ns) 30 unit in 500 mls @ 500 mls/hr IV TITRATE [facility] Oxytocin/Sodium Chloride (Oxytocin 30 Unit/500 Ml-Ns) 30 unit in 500 mls @ 2 mls/hr IV TITRATE [facility]; Protocol Tranexamic Acid 1,000 mg/ (Sodium Chloride) 110 mls @ 660 mls/hr IV ONETIME PRN PRN Reason: Bleeding Lidocaine HCl (Xylocaine 1%) 50 ml INJECT ONETIME PRN PRN Reason: Laceration repair Methylergonovine Maleate (Methergine) 0.2 mg IM ASDIRECTED PRN PRN Reason: Post Hemorrhage Misoprostol (Cytotec) 200 mcg PO ONETIME PRN PRN Reason: Post Hemorrhage Misoprostol (Cytotec) 25 mcg VAG ONETIME PRN PRN Reason: Cervical Ripening Misoprostol (Cytotec) 25 mcg VAG Q4H PRN PRN Reason: Cervical Ripening Last Admin: 05/30/19 16:40 Dose: 25 mcg Misoprostol (Cytotec) 25 mcg PO Q4H PRN PRN Reason: Cervical Ripening Last Admin: 05/30/19 16:40 Dose: 25 mcg Nalbuphine HCl (Nubain) 10 mg IVPUSH Q1H PRN PRN Reason: Pain (severe 7-10) Last Admin: 05/30/19 21:03 Dose: 10 mg Sodium Chloride (Saline Flush) 10 ml FLUSH ASDIRECTED PRN PRN Reason: Keep Vein Open Sodium Chloride (Saline Flush) 2.5 ml FLUSH ASDIRECTED PRN PRN Reason: Keep Vein Open Sodium Chloride (Normal Saline) 10 ml IV ASDIRECTED PRN PRN Reason: IV Use Sterile Water (Sterile Water For Irrigation) 1,000 ml IRR ASDIRECTED PRN PRN Reason: delivery Terbutaline Sulfate (Brethine) 0.25 mg SUBCUT ASDIRECTED PRN PRN Reason: Tacysystole Discontinued Medications Ephedrine Sulfate (Ephedrine Sulfate) Confirm Administered Dose 50 mg .ROUTE .STK-MED ONE Stop: 05/31/19 00:05 Ampicillin Sodium 2 gm/ Sodium (Chloride) 100 mls @ 200 mls/hr IV ONETIME ONE Stop: 05/30/19 16:37 Last Admin: 05/30/19 16:39 Dose: 200 mls/hr Fentanyl/Bupivacaine HCl (Fentanyl/Bupivacaine/Ns 2 Mcg-0.125% 250 Ml) Confirm Administered Dose 250 mls @ as directed .ROUTE .[facility] Stop: 05/30/19 23:22
--- NOTE | 2019-05-31 04:46 | PCM.PNLD ---
Labor Progress Note - VS & Meds Vital Signs: T: 97.7; BP 99/66 (74); HR 80 Active Medications: Current Medications Butorphanol Tartrate (Stadol) 1 mg IVPUSH Q1H PRN PRN Reason: Pain Carboprost Tromethamine (Hemabate Ds) 250 mcg IM ASDIRECTED PRN PRN Reason: Post Hemorrhage Ampicillin Sodium 1 gm/ Sodium (Chloride) 50 mls @ 100 mls/hr IV Q4H [facility] Last Admin: 05/31/19 01:06 Dose: 100 mls/hr Lactated Ringer's (Ringers, Lactated) 1,000 mls @ 150 mls/hr IV ASDIRECTED [facility] Last Admin: 05/31/19 04:10 Dose: 150 mls/hr Oxytocin/Sodium Chloride (Oxytocin 30 Unit/500 Ml-Ns) 30 unit in 500 mls @ 500 mls/hr IV TITRATE [facility] Oxytocin/Sodium Chloride (Oxytocin 30 Unit/500 Ml-Ns) 30 unit in 500 mls @ 2 mls/hr IV TITRATE [facility]; Protocol Last Admin: 05/31/19 02:43 Dose: 2 munits/min, 2 mls/hr Tranexamic Acid 1,000 mg/ (Sodium Chloride) 110 mls @ 660 mls/hr IV ONETIME PRN PRN Reason: Bleeding Lidocaine HCl (Xylocaine 1%) 50 ml INJECT ONETIME PRN PRN Reason: Laceration repair Methylergonovine Maleate (Methergine) 0.2 mg IM ASDIRECTED PRN PRN Reason: Post Hemorrhage Misoprostol (Cytotec) 200 mcg PO ONETIME PRN PRN Reason: Post Hemorrhage Misoprostol (Cytotec) 25 mcg VAG ONETIME PRN PRN Reason: Cervical Ripening Misoprostol (Cytotec) 25 mcg VAG Q4H PRN PRN Reason: Cervical Ripening Last Admin: 05/30/19 16:40 Dose: 25 mcg Misoprostol (Cytotec) 25 mcg PO Q4H PRN PRN Reason: Cervical Ripening Last Admin: 05/30/19 16:40 Dose: 25 mcg Nalbuphine HCl (Nubain) 10 mg IVPUSH Q1H PRN PRN Reason: Pain (severe 7-10) Last Admin: 05/30/19 21:03 Dose: 10 mg Sodium Chloride (Saline Flush) 10 ml FLUSH ASDIRECTED PRN PRN Reason: Keep Vein Open Sodium Chloride (Saline Flush) 2.5 ml FLUSH ASDIRECTED PRN PRN Reason: Keep Vein Open Sodium Chloride (Normal Saline) 10 ml IV ASDIRECTED PRN PRN Reason: IV Use Sterile Water (Sterile Water For Irrigation) 1,000 ml IRR ASDIRECTED PRN PRN Reason: delivery Terbutaline Sulfate (Brethine) 0.25 mg SUBCUT ASDIRECTED PRN PRN Reason: Tacysystole Discontinued Medications Ephedrine Sulfate (Ephedrine Sulfate) Confirm Administered Dose 50 mg .ROUTE .STK-MED ONE Stop: 05/31/19 00:05 Ampicillin Sodium 2 gm/ Sodium (Chloride) 100 mls @ 200 mls/hr IV ONETIME ONE Stop: 05/30/19 16:37 Last Admin: 05/30/19 16:39 Dose: 200 mls/hr Fentanyl/Bupivacaine HCl (Fentanyl/Bupivacaine/Ns 2 Mcg-0.125% 250 Ml) Confirm Administered Dose 250 mls @ as directed .ROUTE .STK-MED ONE Stop: 05/30/19 23:22 - Uterine Contractions Uterine Monitoring Mode: External [place] Contraction Frequency (min): 2-3 Contraction Duration (sec): 70-110 Contraction Intensity: Strong Uterine Resting Tone: Soft - Monitoring Monitor Mode: External Ultrasound Heart Rate (FHR) Baseline: 140 Heart Rate (FHR) Variability: Moderate (6-25 bmp) Accelerations: Absent Decelerations: Late (Frequent lates), Variable (Frequent variables) Strip Review: Category II - Vaginal Exam Dilation (cm): 4-5 Effacement (Percent): 80 Station: -2 Cervical Position: Midposition Sterile Vaginal Exam Performed By: Giselle Stone (SROM, clear, blood tinged, 0341) Vaginal Exam Comment: Cook catheter out 2330. SROM 0341, clear, blood tinged. - Labor Progress (Free Text) Labor Progress: Celesthalie is a 29 yo that presented here today for an elective IOL. Cook catheter placed at 2200, out at 2330. SROM 0341, clear, blood tinged. FHR 120s -130s, moderate variability, accels present, frequent late and variable decels. Left and right laternal position changes uneffective. 100% O2 in place. LR bolus infusing. 2 milliunits pitocin stopped. Moved to hands and knees position. Dr. Sosa notified. Continue with labor POC.
--- NOTE | 2019-05-31 05:47 | PCM.DEL ---
L & D Note - General Info Date of Service: 05/31/19 Mother's Due Date: 06/03/19 - Delivery Note Labor: Spontaneous Cervical Ripening Method: Balloon Device, Oxytocin, Prostaglandin E2 Delivery Outcome: Livebirth Infant Delivery Method: Spontaneous Vaginal Delivery-Single Infant Delivery Mode: Spontaneous Presentation: Left Occiput Anterior (JOSH) Nuchal Cord: None Anesthesia Type: Epidural Episiotomy Type: None Laceration: None Placenta: Intact, Spontaneous (Ayala,) Cord: 3 Vessels Estimated Blood Loss: 350 Resuscitation Needed: No : Suctioned, Bulb Syringe, Stimulated, Warmed Second Stage Interventions: Reports: Encouragement Given, Pushing Effectively, Pushing, Feet in Foot Rests Delivery Comments (Free Text/Narrative):: Ivette is a 29 yo S/P uncomplicated of viable, vigorous NBF with spontaneous cries, JOSH. AB pos, RI, GBS positive, adequate prophylaxis x 2 doses prior to SROM. NBF placed on lower maternal abdomen, warmed, dried, stimulated. Apgars 8/9. Delayed cord clamping x 2 min, clamped x 2, cut by FOB. Placenta delivered Ayala, intact, 3VC. EBL 350. Perineum intact. Uterus Firm U-1. Patient resting comfortably in bed, NBF [id number]. - General Info Date of Service: 05/31/19 Admission Dx/Problem (Free Text): Patient Status Order with Admit Dx/Problem 05/30/19 16:08 Patient Status [ADT] Routine Admission Diagnosis/Problem Admission Diagnosis/Problem 05/30/19 19:37 Ivette is a 29 yo that presents today for social IOL at 39.3 wks (TIFFANIE 06/03/2019). AB pos, RI, GBS pos. Functional Status: Reports: Pain Controlled Pain Score: 1 (Epidural analgesia BLE) - Review of Systems General: Reports: No Symptoms HEENT: Reports: No Symptoms Pulmonary: Reports: No Symptoms Cardiovascular: Reports: No Symptoms Gastrointestinal: Reports: No Symptoms Genitourinary: Reports: No Symptoms Musculoskeletal: Reports: No Symptoms Skin: Reports: No Symptoms Neurological: Reports: No Symptoms Psychiatric: Reports: No Symptoms - Patient Data Weight - Most Recent: 170 lb Lab Results Last 24 Hours: Laboratory Results - last 24 hr 05/30/19 05/30/19 Range/Units 15:50 15:50 WBC 9.85 (4.0-11.0) K/uL RBC 4.11 L (4.30-5.90) M/uL Hgb 11.6 L (12.0-16.0) g/dL Hct 35.4 L (36.0-46.0) % MCV 86.1 (80.0-98.0) fL MCH 28.2 (27.0-32.0) pg MCHC 32.8 (31.0-37.0) g/dL RDW Std Deviation 41.8 (28.0-62.0) fl RDW Coeff of Carol 13 (11.0-15.0) % Plt Count 190 (150-400) K/uL MPV 10.20 (7.40-12.00) fL Nucleated RBC % 0.0 /100WBC Nucleated RBCs # 0 K/uL Blood Type AB POSITIVE Antibody Screen NEGATIVE Med Orders - Current: Current Medications Butorphanol Tartrate (Stadol) 1 mg IVPUSH Q1H PRN PRN Reason: Pain Carboprost Tromethamine (Hemabate Ds) 250 mcg IM ASDIRECTED PRN PRN Reason: Post Hemorrhage Ampicillin Sodium 1 gm/ Sodium (Chloride) 50 mls @ 100 mls/hr IV Q4H [facility] Last Admin: 05/31/19 05:06 Dose: 100 mls/hr Lactated Ringer's (Ringers, Lactated) 1,000 mls @ 150 mls/hr IV ASDIRECTED GUNNAR Last Admin: 05/31/19 04:10 Dose: 150 mls/hr Oxytocin/Sodium Chloride (Oxytocin 30 Unit/500 Ml-Ns) 30 unit in 500 mls @ 500 mls/hr IV TITRATE GUNNAR Oxytocin/Sodium Chloride (Oxytocin 30 Unit/500 Ml-Ns) 30 unit in 500 mls @ 2 mls/hr IV TITRATE [facility]; Protocol Last Admin: 05/31/19 02:43 Dose: 2 munits/min, 2 mls/hr Tranexamic Acid 1,000 mg/ (Sodium Chloride) 110 mls @ 660 mls/hr IV ONETIME PRN PRN Reason: Bleeding Lidocaine HCl (Xylocaine 1%) 50 ml INJECT ONETIME PRN PRN Reason: Laceration repair Methylergonovine Maleate (Methergine) 0.2 mg IM ASDIRECTED PRN PRN Reason: Post Hemorrhage Misoprostol (Cytotec) 200 mcg PO ONETIME PRN PRN Reason: Post Hemorrhage Misoprostol (Cytotec) 25 mcg VAG ONETIME PRN PRN Reason: Cervical Ripening Misoprostol (Cytotec) 25 mcg VAG Q4H PRN PRN Reason: Cervical Ripening Last Admin: 05/30/19 16:40 Dose: 25 mcg Misoprostol (Cytotec) 25 mcg PO Q4H PRN PRN Reason: Cervical Ripening Last Admin: 05/30/19 16:40 Dose: 25 mcg Nalbuphine HCl (Nubain) 10 mg IVPUSH Q1H PRN PRN Reason: Pain (severe 7-10) Last Admin: 05/30/19 21:03 Dose: 10 mg Sodium Chloride (Saline Flush) 10 ml FLUSH ASDIRECTED PRN PRN Reason: Keep Vein Open Sodium Chloride (Saline Flush) 2.5 ml FLUSH ASDIRECTED PRN PRN Reason: Keep Vein Open Sodium Chloride (Normal Saline) 10 ml IV ASDIRECTED PRN PRN Reason: IV Use Sterile Water (Sterile Water For Irrigation) 1,000 ml IRR ASDIRECTED PRN PRN Reason: delivery Terbutaline Sulfate (Brethine) 0.25 mg SUBCUT ASDIRECTED PRN PRN Reason: Tacysystole Discontinued Medications Ephedrine Sulfate (Ephedrine Sulfate) Confirm Administered Dose 50 mg .ROUTE .STK-MED ONE Stop: 05/31/19 00:05 Ampicillin Sodium 2 gm/ Sodium (Chloride) 100 mls @ 200 mls/hr IV ONETIME ONE Stop: 05/30/19 16:37 Last Admin: 05/30/19 16:39 Dose: 200 mls/hr Fentanyl/Bupivacaine HCl (Fentanyl/Bupivacaine/Ns 2 Mcg-0.125% 250 Ml) Confirm Administered Dose 250 mls @ as directed .ROUTE .STK-MED ONE Stop: 05/30/19 23:22 - Exam General: Alert, Oriented HEENT: Pupils Equal, Pupils Reactive, Mucous Membr. Moist/[place] Neck: Supple Lungs: Clear to Auscultation, Normal Respiratory Effort Cardiovascular: Regular Rate, Regular Rhythm GI/Abdominal Exam: Normal Bowel Sounds, Soft, Non-Tender, No Organomegaly, No Distention, Other (Uterus firm, U-1) (Female) Exam: Normal External Exam, Normal Bimanual Exam, Vaginal Bleeding ( Moderate rubra lochia, no clots.) Back Exam: Normal Inspection, Full Range of Motion Extremities: Normal Inspection, Normal Range of Motion, Non-Tender, No Pedal Edema, Normal Capillary Refill Skin: Warm, Dry, Intact Neurological: No New Focal Deficit Psy/Mental Status: Alert, Normal Affect, Normal Mood - Problem List & Annotations (1) (normal spontaneous vaginal delivery) SNOMED Code(s): 36643710, 164862004 Code(s): O80 - ENCOUNTER FOR FULL-TERM UNCOMPLICATED DELIVERY Status: Acute Priority: High Current Visit: Yes (2) Mother currently breast-feeding SNOMED Code(s): 375937651 Code(s): Z39.1 - ENCOUNTER FOR CARE AND EXAMINATION OF LACTATING MOTHER Status: Acute Current Visit: Yes - Problem List Review Problem List Initiated/Reviewed/Updated: Yes - Assessment Assessment:: Celestial is a 29 yo S/P uncomplicated of viable, vigorous NBF with spontaneous cries, JOSH. AB pos, RI, GBS positive, adequate prophylaxis x 2 doses prior to SROM. NBF placed on lower maternal abdomen, warmed, dried, stimulated. Apgars 8/9. Delayed cord clamping x 2 min, clamped x 2, cut by FOB. Placenta delivered Ayala, intact, 3VC. EBL 350. Perineum intact. Uterus Firm U-1. Patient resting comfortably in bed, NBF [id number]. - Plan Plan:: Continue to normal POC S/P uncomplicated . Admit to inpatient, PP. See new orders.
[2019-05-31] MEDS ORDERED: Sodium Chloride 0.9% 10 ML Syringe FLUSH PRN (05:52)
[2019-05-31] MEDS ORDERED: Benzocaine/Menthol 20%-0.5% Spray 78 GM Cannister TOP PRN (05:52)
[2019-05-31] MEDS ORDERED: oxyCODONE 5 MG Tab PO PRN (05:52)
[2019-05-31] MEDS ORDERED: Aluminum Hydroxide/Magnesium Hydroxide/Simethicone Susp 30 ML Cup PO PRN (05:52)
[2019-05-31] MEDS ORDERED: Sodium Chloride 0.9% 2.5 ML Syringe FLUSH PRN (05:52)
[2019-05-31] MEDS ORDERED: Witch Hazel Medicated Pads 40/Jar TOP PRN (05:52)
[2019-05-31] MEDS ORDERED: Bisacodyl 10 MG Supp RECTAL PRN (05:52)
[2019-05-31] MEDS ORDERED: Ibuprofen 400 MG Tab PO PRN (05:52)
[2019-05-31] MEDS ORDERED: Acetaminophen 500 MG Tab PO PRN ×2 (05:52)
[2019-05-31] MEDS ORDERED: Lanolin 100% Cream 7 GM Tube TOP PRN (05:52)
[2019-05-31] MEDS: Ibuprofen 800 MG Tab PO PRN ×3 (07:35→22:43)
[2019-05-31] MEDS: Docusate Sodium 100 MG Cap PO PRN ×2 (07:35→22:51)
[2019-06-01 04:20] VITALS: PULSE 74
[2019-06-01] MEDS: Ibuprofen 800 MG Tab PO PRN (04:35)
--- NOTE | 2019-06-01 06:53 | PCM48HPAN ---
Post Anesthesia Note - EVALUATION WITHIN 48HRS OF ANESTHETIC Vital Signs in Normal Range: Yes Patient Participated in Evaluation: Yes Respiratory Function Stable: Yes Airway Patent: Yes Cardiovascular Function Stable: Yes Hydration Status Stable: Yes Pain Control Satisfactory: Yes Nausea and Vomiting Control Satisfactory: Yes Mental Status Recovered: Yes Vital Signs: Last Vital Signs Temp 36.6 C 06/01/19 04:00 Pulse 74 06/01/19 04:00 Resp 16 06/01/19 04:00 BP 120/75 06/01/19 04:00 Pulse Ox 95 06/01/19 04:00 - COMMENTS/OBSERVATIONS Free Text/Narrative:: Patient resting in bed and doing well. No anesthesia complications or concerns noted.
[2019-06-01 07:58] VITALS: BP 91/55
--- NOTE | 2019-06-01 08:12 | PCM.DCSUM1 ---
Discharge Summary - Hospital Course Free Text/Narrative:: Celestial is a 29 yo PPD1 S/P uncomplicated of viable, vigorous NBF at 39.3 weeks gestation. AB pos, RI, GBS positive, adequate prophylaxis x 2 doses prior to SROM. Moderate rubra lochia, no clots. NBF breast feeding, patient pumping between feeds to increase milk supply. Patient resting comfortably in bed with NB in bassinet at bedside. Reports pain is well controlled with 800 mg ibuprofen. Denies complaints or concerns at this time. Warning S/Ss, when to call for help discussed with patient, verbalizes understanding. Plan to D/C home today pending powder guard recommendation. Diagnosis: Stroke: No - Discharge Data Discharge Date: 06/01/19 Discharge Disposition: Home, Self-Care 01 Condition: Good - Referral to Home Health Primary Care Physician: PCP None - Discharge Diagnosis/Problem(s) (1) (normal spontaneous vaginal delivery) SNOMED Code(s): 42535379, [id number] ICD Code: O80 - ENCOUNTER FOR FULL-TERM UNCOMPLICATED DELIVERY Status: Acute Priority: High Current Visit: Yes (2) Mother currently breast-feeding SNOMED Code(s): 623910447 ICD Code: Z39.1 - ENCOUNTER FOR CARE AND EXAMINATION OF LACTATING MOTHER Status: Acute Current Visit: Yes - Patient Instructions Diet: Regular Diet as Tolerated, Drink 8-10+ Glasses/Day Activity: Apply Ice, As Tolerated, No Lifting Over 20 Pounds, No Strenuous Activities Driving: May Drive Today Showering/Bathing: May Shower - Discharge Plan *PRESCRIPTION DRUG MONITORING PROGRAM REVIEWED*: No *COPY OF PRESCRIPTION DRUG MONITORING REPORT IN PATIENT HAJA: No Prescriptions/Med Rec: Ibuprofen 800 mg PO Q8H #90 tablet Home Medications: Home Meds LORazepam 0.5 mg PO TID PRN 10/14/17 [History] Pnv No.95/Ferrous Fum/Folic AC [ Vitamins Tablet] 1 tab PO DAILY [History] Ibuprofen 800 mg PO Q8H #90 tablet 06/01/19 [Rx] Ibuprofen [Motrin] 800 mg PO Q8H PRN tablet 06/01/19 [Rx] Oxygen Therapy Mode: Room Air - Discharge Summary/Plan Comment DC Time >30 min.: No Discharge Summary/Plan Comment: Follow up in clinic for 6 week visit or sooner if problems arise. - General Info Date of Service: 06/01/19 Admission Dx/Problem (Free Text: Patient Status Order with Admit Dx/Problem 05/30/19 16:08 Patient Status [ADT] Routine Admission Diagnosis/Problem Admission Diagnosis/Problem 05/30/19 19:37 Celesthalie is a 29 yo that presents today for social IOL at 39.3 wks (TIFFANIE 06/03/2019). AB pos, RI, GBS pos. Functional Status: Reports: Pain Controlled - Review of Systems General: Reports: No Symptoms HEENT: Reports: No Symptoms Pulmonary: Reports: No Symptoms Cardiovascular: Reports: No Symptoms Gastrointestinal: Reports: No Symptoms Genitourinary: Reports: No Symptoms Musculoskeletal: Reports: No Symptoms Skin: Reports: No Symptoms Neurological: Reports: No Symptoms Psychiatric: Reports: No Symptoms - Patient Data Vitals - Most Recent: Last Vital Signs Temp 97.7 F 06/01/19 07:55 Pulse 74 06/01/19 04:00 Resp 16 06/01/19 07:55 BP 91/55 L 06/01/19 07:55 Pulse Ox 96 06/01/19 07:55 Weight - Most Recent: 170 lb Med Orders - Current: Current Medications Acetaminophen (Tylenol Extra Strength) 500 mg PO Q4H PRN PRN Reason: Pain Acetaminophen (Tylenol Extra Strength) 1,000 mg PO Q4H PRN PRN Reason: Pain Al Hydroxide/Mg Hydroxide (Mag-Al Plus) 30 ml PO Q8H PRN PRN Reason: Heartburn Benzocaine/Menthol (Dermoplast Pain Relief 20%-0.5% [place]) 78 gm TOP ASDIRECTED PRN PRN Reason: Perineal Comfort Measure Last Admin: 05/31/19 07:35 Dose: 1 spray Bisacodyl (Dulcolax) 10 mg RECTAL ONETIME PRN PRN Reason: Constipation Docusate Sodium (Colace) 100 mg PO BID PRN PRN Reason: Constipation Last Admin: 05/31/19 22:51 Dose: 100 mg Emollient Ointment (Lansinoh Hpa) 0 gm TOP ASDIRECTED PRN PRN Reason: Sore Nipples Last Admin: 05/31/19 07:35 Dose: 1 gm Ibuprofen (Motrin) 400 mg PO Q4H PRN PRN Reason: Pain Ibuprofen (Motrin) 800 mg PO Q6H PRN PRN Reason: Pain Last Admin: 06/01/19 04:35 Dose: 800 mg Oxycodone HCl (Oxycodone) 5 mg PO Q2H PRN PRN Reason: Pain Sodium Chloride (Saline Flush) 10 ml FLUSH ASDIRECTED PRN PRN Reason: Keep Vein Open Sodium Chloride (Saline Flush) 2.5 ml FLUSH ASDIRECTED PRN PRN Reason: Keep Vein Open Witch Kaila (Tucks) 1 pad TOP ASDIRECTED PRN PRN Reason: comfort care Last Admin: 05/31/19 07:35 Dose: 1 pad Discontinued Medications Butorphanol Tartrate (Stadol) 1 mg IVPUSH Q1H PRN PRN Reason: Pain Carboprost Tromethamine (Hemabate Ds) 250 mcg IM ASDIRECTED PRN PRN Reason: Post Hemorrhage Ephedrine Sulfate (Ephedrine Sulfate) Confirm Administered Dose 50 mg .ROUTE .STK-MED ONE Stop: 05/31/19 00:05 Last Admin: 05/31/19 14:24 Dose: Not Given Ampicillin Sodium 2 gm/ Sodium (Chloride) 100 mls @ 200 mls/hr IV ONETIME ONE Stop: 05/30/19 16:37 Last Admin: 05/30/19 16:39 Dose: 200 mls/hr Ampicillin Sodium 1 gm/ Sodium (Chloride) 50 mls @ 100 mls/hr IV Q4H [facility] Last Admin: 05/31/19 05:06 Dose: 100 mls/hr Lactated Ringer's (Ringers, Lactated) 1,000 mls @ 150 mls/hr IV ASDIRECTED [facility] Last Admin: 05/31/19 04:10 Dose: 150 mls/hr Oxytocin/Sodium Chloride (Oxytocin 30 Unit/500 Ml-Ns) 30 unit in 500 mls @ 500 mls/hr IV TITRATE [facility] Oxytocin/Sodium Chloride (Oxytocin 30 Unit/500 Ml-Ns) 30 unit in 500 mls @ 2 mls/hr IV TITRATE [facility]; Protocol Last Admin: 05/31/19 02:43 Dose: 2 munits/min, 2 mls/hr Tranexamic Acid 1,000 mg/ (Sodium Chloride) 110 mls @ 660 mls/hr IV ONETIME PRN PRN Reason: Bleeding Fentanyl/Bupivacaine HCl (Fentanyl/Bupivacaine/Ns 2 Mcg-0.125% 250 Ml) Confirm Administered Dose 250 mls @ as directed .ROUTE .STK-MED ONE Stop: 05/30/19 23:22 Last Admin: 05/31/19 14:24 Dose: Not Given Lidocaine HCl (Xylocaine 1%) 50 ml INJECT ONETIME PRN PRN Reason: Laceration repair Methylergonovine Maleate (Methergine) 0.2 mg IM ASDIRECTED PRN PRN Reason: Post Hemorrhage Misoprostol (Cytotec) 200 mcg PO ONETIME PRN PRN Reason: Post Hemorrhage Misoprostol (Cytotec) 25 mcg VAG ONETIME PRN PRN Reason: Cervical Ripening Misoprostol (Cytotec) 25 mcg VAG Q4H PRN PRN Reason: Cervical Ripening Last Admin: 05/30/19 16:40 Dose: 25 mcg Misoprostol (Cytotec) 25 mcg PO Q4H PRN PRN Reason: Cervical Ripening Last Admin: 05/30/19 16:40 Dose: 25 mcg Nalbuphine HCl (Nubain) 10 mg IVPUSH Q1H PRN PRN Reason: Pain (severe 7-10) Last Admin: 05/30/19 21:03 Dose: 10 mg Sodium Chloride (Saline Flush) 10 ml FLUSH ASDIRECTED PRN PRN Reason: Keep Vein Open Sodium Chloride (Saline Flush) 2.5 ml FLUSH ASDIRECTED PRN PRN Reason: Keep Vein Open Sodium Chloride (Normal Saline) 10 ml IV ASDIRECTED PRN PRN Reason: IV Use Sterile Water (Sterile Water For Irrigation) 1,000 ml IRR ASDIRECTED PRN PRN Reason: delivery Terbutaline Sulfate (Brethine) 0.25 mg SUBCUT ASDIRECTED PRN PRN Reason: Tacysystole - Exam General: Reports: Alert, Oriented HEENT: Reports: Pupils Equal, Pupils Reactive, Mucous Membr. Moist/[place] Neck: Reports: Supple Lungs: Reports: Clear to Auscultation, Normal Respiratory Effort Cardiovascular: Reports: Regular Rate, Regular Rhythm GI/Abdominal Exam: Normal Bowel Sounds, Soft, Non-Tender, No Organomegaly, No Distention, Other (Uterus firm U-1) (Female) Exam: Normal External Exam, Vaginal Bleeding (Moderate rubra lochia , no clots) Rectal (Female) Exam: Deferred Back Exam: Reports: Normal Inspection, Full Range of Motion Extremities: Normal Inspection, Normal Range of Motion, Non-Tender, No Pedal Edema, Normal Capillary Refill Skin: Reports: Warm, Dry, Intact Neurological: Reports: No New Focal Deficit Psy/Mental Status: Reports: Alert, Normal Affect, Normal Mood
[2019-06-01] MEDS: Docusate Sodium 100 MG Cap PO PRN (09:03)
== END 2019-06-01 12:35 | disposition home or self-care (01) | DRG 807 ==
LOC: MW.OBCHECK 15:08 → MW.OB 15:09 → MW.OBCHECK 16:08 → OBSVTOIN 05-31 05:21 → MW.OB 05-31 10:52
PROVIDERS: ADMIT Obstetrics & Gynecology; ATTEND Obstetrics & Gynecology
PROC: 10E0XZZ Delivery of Products of Conception, External Approach (ICD-10-PCS; principal; 2019-05-31)
PROC: 3E0P7VZ Introduction of Hormone into Female Reproductive, Via Natural or Artificial Opening (ICD-10-PCS; 2019-05-31)
PROC: 3E0R3BZ Introduction of Anesthetic Agent into Spinal Canal, Percutaneous Approach (ICD-10-PCS; 2019-05-31)
DX: O99.824 Streptococcus B carrier state complicating childbirth (principal); Z37.0 Single live birth; Z3A.39 39 weeks gestation of pregnancy; Z87.891 Personal history of nicotine dependence; O76 Abnormality in fetal heart rate and rhythm complicating labor and delivery; Z91.09 Other allergy status, other than to drugs and biological substances
CPT/HCPCS: 01967; 36415; 51702; 59025; 59200; 59409; 85027; 86592; 86593; 86850; 86900; 86901; A9270-GY; J0290; J2300; J2590; J3010; J7050; J7120

== ENCOUNTER 2021-08-30 09:02 | Emergency (ER) | payer MEDICAID, OTHER ==
[2021-08-30] MEDS ORDERED: Acetaminophen/HYDROcodone 325-5 MG Tab PO ONE (09:17)
[2021-08-30] MEDS ORDERED: Ondansetron 4 MG Tab.DIS PO ONE (09:17)
[2021-08-30] MEDS ORDERED: Ketorolac 60 MG/2 ML SDV IM ONE (10:26)
[2021-08-30 19:21] VITALS: BP 136/76; PULSE 74
== END 2021-08-30 11:24 | disposition home or self-care (01) ==
LOC: MW.ED 09:02
DX: S39.92XA Unspecified injury of lower back, initial encounter (principal); Z91.09 Other allergy status, other than to drugs and biological substances; W01.0XXA Fall on same level from slipping, tripping and stumbling without subsequent striking against object, initial encounter
CPT/HCPCS: 72220; 96372; 99283; A9270; J1885

== ENCOUNTER 2022-12-03 20:38 | Emergency (ER) | payer SELFPAY ==
[2022-12-03] MEDS ORDERED: Sodium Chloride 0.9% 2.5 ML Syringe FLUSH PRN (21:41)
[2022-12-03] MEDS ORDERED: Sodium Chloride 0.9% 10 ML Syringe FLUSH PRN (21:41)
[2022-12-03] MEDS ORDERED: Sodium Chloride 0.9% 1,000 ML IV STA ×2 (21:42→22:45)
[2022-12-03] MEDS ORDERED: Ondansetron 4 MG/2 ML SDV IVPUSH STA (21:42)
[2022-12-03 22:11] LABS: BASOPHILS ABSOLUTE AUTO 0.05 K/uL (0.00-0.20); BASOPHILS PERCENT AUTO 0.4 % (0.0-1.0); EOSINOPHILS ABSOLUTE AUTO 0.31 K/uL (0.00-0.45); EOSINOPHILS PERCENT AUTO 2.7 % (0.0-6.0); HEMATOCRIT 37.1 % (37.0-47.0); HEMOGLOBIN 13.2 g/dL (12.0-16.0); IMMATURE GRAN ABSOLUTE AUTO 0.03 K/uL (0.00-0.05); IMMATURE GRAN PERCENT AUTO 0.3 % (0.0-0.4); LYMPHOCYTES ABSOLUTE AUTO 2.29 K/uL (1.00-4.80); LYMPHOCYTES PERCENT AUTO 20.2 % (24.0-44.0); MEAN CORPUSCULAR HEMOGLOBIN 29.1 pg (28.0-32.0); MEAN CORPUSCULAR HGB CONC 35.6 g/dL (32.0-36.0); MEAN CORPUSCULAR VOLUME 81.9 fL (83.0-99.0); MEAN PLATELET VOLUME 9.3 fL (9.4-12.3); MONOCYTES ABSOLUTE AUTO 0.58 K/uL (0.00-0.80); MONOCYTES PERCENT AUTO 5.1 % (0.0-8.0); NEUTROPHILS ABSOLUTE AUTO 8.1 K/uL (1.8-7.7); NEUTROPHILS PERCENT AUTO 71.3 % (41.0-71.0); PLATELET COUNT,PLT 298 K/uL (150-400); RED BLOOD CELL COUNT 4.53 M/uL (4.10-5.30); WHITE BLOOD CELL COUNT,WBC 11.35 K/uL (3.9-11.3)
[2022-12-03 22:31] VITALS: BP 91/55
[2022-12-03 22:33] LABS: A/G RATIO 1.1 (0.9-1.6); ALBUMIN 3.4 g/dL (3.4-5.0); BILIRUBIN TOTAL 0.5 mg/dL (0.2-1.0); CARBON DIOXIDE,CO2 25.1 mmol/L (21.0-32.0); CREATININE 0.7 mg/dL (0.6-1.0); EST CRCL DRUG DOSING (CG) 99.63 mL/min; PROTEIN TOTAL,TP 6.6 g/dL (6.4-8.2)
[2022-12-03 22:49] LABS: CORONAVIRUS COVID-19 NAA NEGATIVE (NEGATIVE); INFLUENZA A NAA NEGATIVE (NEGATIVE); INFLUENZA B NAA NEGATIVE (NEGATIVE)
[2022-12-03 23:08] LABS: BILIRUBIN,URINE NEGATIVE (NEGATIVE); COLOR,URINE YELLOW; GLUCOSE,URINE NEGATIVE (NEGATIVE); KETONES,URINE NEGATIVE (NEGATIVE); LEUKOCYTE ESTERASE,URINE TRACE (NEGATIVE); NITRITE,URINE NEGATIVE (NEGATIVE); OCCULT BLOOD,URINE NEGATIVE (NEGATIVE); PROTEIN,URINE NEGATIVE (NEGATIVE)
[2022-12-03 23:10] LABS: APPEARANCE,URINE HAZY
[2022-12-03 23:20] LABS: BACTERIA,URINE FEW (NEGATIVE); EPITHELIAL CELLS,URINE MODERATE (NONE-FEW); MUCUS,URINE LIGHT (NONE-MOD); RBC,URINE 0-2 (0-2/HPF)
[2022-12-03 23:47] VITALS: PULSE 72
== END 2022-12-03 23:45 | disposition home or self-care (01) ==
LOC: MW.ED 20:38
DX: A08.4 Viral intestinal infection, unspecified (principal); N30.00 Acute cystitis without hematuria; Z91.048 Other nonmedicinal substance allergy status; Z20.822 Contact with and (suspected) exposure to COVID-19
CPT/HCPCS: 0240U; 36415; 80053; 81001; 81025; 83690; 83735; 85025; 87086; 96361; 96374; 99284; J2405; J3490; J7030